=== PATIENT | female | born 1985 | race Caucasian/White ===

== ENCOUNTER 2022-07-22 11:07 | Observation (INO) ==
[2022-07-22] MEDS ORDERED: SODIUM CHLORIDE 0.9% 500 ML IV STA (11:30)
--- NOTE | 2022-07-22 11:40 | Emergency Department Note ---
Impression & Plan Acute appendicitis ADMIT ED Provider Note HPI: The patient is a 37-year-old female who presents to the emergency department with a chief complaint of right lower quadrant abdominal pain and nausea. Patient states her symptoms been ongoing for the past 3 days. Patient states the pain is been relatively constant. She denies any vomiting, denies any diarrhea. Patient states she does have a history of an ovarian torsion on the right side, this required surgical resection of an ovarian cyst in 2016 when she was living in [place]. Patient states the pain does not feel similar to that. On arrival here to the ED the patient is otherwise hemodynamically stable, she is in no acute distress on my initial evaluation. ROS: - Per HPI *Outpatient medications and allergy history reviewed. *Pertinent external medical records reviewed. PE: General: Alert HEENT: Normocephalic, trachea midline Eyes: Extraocular eye movement is intact, no scleral erythema Pulmonary: Clear to auscultation bilaterally, no wheezing Cardio: Regular rate and rhythm GI: Abdomen is soft to palpation, moderate tenderness in the right lower quadrant to palpation without guarding or rigidity : No suprapubic tenderness MSK: No evidence of trauma or malformation of the extremities, no edema Skin: No evidence of rash Neuro: Alert, no focal deficits Psychiatric: Cooperative quality assurance monitor body: (As interpreted by myself): - An order was placed for continuous cardiac monitoring - Patient was noted to be in sinus rhythm with a rate of 70 Interventions provided in ED: -IV morphine, IV Zofran, IV Zosyn Differential Diagnosis: Ovarian cyst, ovarian torsion, acute appendicitis, small bowel obstruction, acute cholecystitis, amongst other potential pathologies. Medical Decision Making: Patient presented to the emergency department the chief complaint of right-sided abdominal pain, on arrival here to the ED the patient is in no acute distress. IV was established, lab work obtained, patient was placed on surveillance system monitor. Lab work shows a mild leukocytosis, no evidence of acute kidney injury, CT imaging of the abdomen pelvis was obtained that shows evidence of acute appendicitis without perforation or abscess. Case was discussed with the on- call midlevel provider for general surgery, following evaluation at the bedside by Dr. Hernández of general surgery patient will be taken to the OR for definitive care. She was given a prophylactic dose of Zosyn here in the ED as well as morphine and Zofran for pain and nausea. Patient is in agreement to the above plan as is her at the bedside, patient was transferred to the operating room in stable condition for further management Consultants: Dr. Hernández, General surgery Disposition discussion held by myself with: Patient Diagnosis: 1. Acute appendicitis 2. Right-sided abdominal pain, acute 3. Leukocytosis, mild Disposition: Admission Thomas Young DO Emergency Medicine Past Med/Surg History Medical History Thyroid antibody positive Surgical History History of History of lung surgery lung resection History of removal of ovarian cyst History of tonsillectomy and adenoidectomy Family History Father Diabetes Myocardial infarction Hypertension Dyslipidemia Mother Cancer thyroid Sister Hypertension Cancer thyroid Aunt Cancer thyroid Uncle Cancer thyroid Grandfather (Maternal) Cancer thyroid Denies family history of Ovarian cancer Prostate cancer Breast cancer Colorectal cancer Social History (Updated 11/11/20 @ 13:29 by TARIK Winn) Smoking Status: Never smoker Second Hand Exposure: No; Hx Alcohol Use: Yes Alcohol Intake Frequency Comment: 1-2 per month Hx Substance Use: No Preferred Language: Vietnamese marital status: Current Living Situation: Spouse and Family current occupational status: employed Feels Safe at Home: Yes caffeine: No Dental Care, Regularly: No Physical Activity Frequency: 3-4 Times per Week Seatbelt Use: always Sunscreen Use: Yes Allergies Allergies Allergy/AdvReac Type Severity Reaction Status Date / Time Sulfa (Sulfonamide Allergy hives Verified 07/22/22 14:39 Antibiotics) Home Meds Home Medications Medication Instructions Recorded Confirmed ascorbic acid (vitamin C) 1,000 mg 1,000 mg PO DAILY 09/29/20 07/22/22 tablet,extended release cholecalciferol (vitamin D3) 125 125 mcg PO DAILY 09/29/20 07/22/22 mcg (5,000 unit) capsule magnesium citrate 100 mg capsule 100 mg PO DAILY PRN Constipation 09/29/20 07/22/22 coenzyme Q10 30 mg capsule 0 mg PO DAILY 07/22/22 07/22/22 cyanocobalamin (vitamin B-12) 50 0 mcg PO DAILY 07/22/22 07/22/22 mcg tablet (Vitamin B-12) naltrexone 50 mg tablet 0 mg PO DAILY 07/22/22 07/22/22 Results & Data (ED) Vital Signs Vital Signs - 24 hr 07/22/22 11:17 07/22/22 11:35 07/22/22 14:00 Temperature 36.6 C Temperature Source Temporal Artery Scan Pulse Rate 94 H Pulse Rate [Radial] 72 78 Pulse Rhythm [Radial] Regular Pulse Strength [Radial] Normal Respiratory Rate 18 21 18 Respiratory Effort / Characteristics Non-Labored Spontaneous Non-Labored Spontaneous Non-Labored Spontaneous Respiratory Depth Normal Normal Normal Respiratory Pattern Regular Regular Regular Blood Pressure 148/94 H Blood Pressure [Left Arm] 139/97 156/91 H Blood Pressure Mean 112 Blood Pressure Mean [Left Arm] 111 112 Blood Pressure Position Sitting Blood Pressure Position [Left Arm] Lying Lying Pulse Oximetry 98 99 100 Oxygen Delivery Method Room Air Room Air Room Air Sepsis Recent Fever Within 48 Hours No Sepsis New/Unexplained Change in Mental Status N/A Sepsis Action Taken by Nursing No Action Required 07/22/22 15:02 07/22/22 15:27 07/22/22 15:45 Temperature Temperature Source Pulse Rate Pulse Rate [Radial] 70 74 Pulse Rhythm [Radial] Pulse Strength [Radial] Respiratory Rate 18 18 Respiratory Effort / Characteristics Non-Labored Accessory Muscle Use Respiratory Depth Normal Respiratory Pattern Blood Pressure Blood Pressure [Left Arm] 138/90 150/85 H Blood Pressure Mean Blood Pressure Mean [Left Arm] 106 106 Blood Pressure Position Blood Pressure Position [Left Arm] Pulse Oximetry 97 100 Oxygen Delivery Method Room Air Room Air Room Air Sepsis Recent Fever Within 48 Hours Sepsis New/Unexplained Change in Mental Status Sepsis Action Taken by Nursing Laboratory Data 07/22/22 11:35 07/22/22 11:35 Lab Results 07/22/22 07/22/22 07/22/22 Range/Units 11:35 11:35 11:35 WBC 12.10 H (4.8-10.8) K/ul RBC 4.62 (4.20-5.40) M/uL Hgb 13.7 (12.0-16.0) g/dl Hct 40.7 (37.0-47.0) % MCV 88.1 (80.0-100.0) fL MCH 29.7 (25.0-34.0) pg MCHC 33.7 (32.0-36.0) g/dL RDW Std Deviation 39.4 (36.4-46.3) fL RDW Coeff of Gopi 12.3 (11.5-14.5) % Plt Count 224 (130-400) K/uL MPV 9.8 (9.4-12.4) fL Immature Gran % (Auto) 0.3 % Neut % (Auto) 73.0 % Lymph % (Auto) 18.8 % Wilkes % (Auto) 6.9 % Eos % (Auto) 0.6 % Baso % (Auto) 0.4 % Neut # (Auto) 8.84 H (1.40-6.50) K/uL Lymph # (Auto) 2.27 (1.2-3.4) K/uL [place] # (Auto) 0.83 H (0.11-0.59) K/uL Eos # (Auto) 0.07 (0-0.50) K/uL Baso # (Auto) 0.05 (0-0.2) K/uL Immature Gran # (Auto) 0.04 (0.01-0.20) K/uL Sodium 139 (136-145) mmol/L Potassium 3.7 (3.5-5.1) mmol/L Chloride 105 (98-107) mmol/L Carbon Dioxide 31 (21-32) mmol/L Anion Gap 3 (3-11) BUN 7 (6-23) mg/dl Creatinine 0.68 (0.6-1.2) mg/dl Est Cr Clr Drug Dosing 123.7 ml/min Est GFR ( Amer) 129.5 ml/min Est GFR (Non-Af Amer) 111.7 ml/min BUN/Creatinine Ratio 10.3 (10-20) Glucose 99 (70-99(Fasting)) mg/dl Calcium 8.9 (8.5-10.1) mg/dl Total Bilirubin 0.4 (0.2-1.0) mg/dl AST 11 L (13-39) U/L ALT 10 (7-52) U/L Alkaline Phosphatase 56 (34-104) U/L Total Protein 6.7 (6.0-8.3) gm/dl Albumin 4.1 (3.4-5.0) gm/dl Globulin 2.6 (2.5-4.0) gm/dl Albumin/Globulin Ratio 1.6 (0.9-2) Lipase 8 L (11-82) U/L HCG, Qual Negative (Negative) Urine Color Urine Appearance (Clear) Urine pH (4.5-7.5) Ur Specific [place] (1.000-1.030) Urine Protein (Negative) Urine Glucose (UA) (Negative) Urine Ketones (Negative) Urine Blood (Negative) Urine Nitrite (Negative) Urine Bilirubin (Negative) Urine Urobilinogen (Negative) Ur Leukocyte Esterase (Negative) SARS-CoV-2, RNA, NAAT (NEGATIVE) 07/22/22 07/22/22 Range/Units 13:33 14:11 WBC (4.8-10.8) K/ul RBC (4.20-5.40) M/uL Hgb (12.0-16.0) g/dl Hct (37.0-47.0) % MCV (80.0-100.0) fL MCH (25.0-34.0) pg MCHC (32.0-36.0) g/dL RDW Std Deviation (36.4-46.3) fL RDW Coeff of Gopi (11.5-14.5) % Plt Count (130-400) K/uL MPV (9.4-12.4) fL Immature Gran % (Auto) % Neut % (Auto) % Lymph % (Auto) % Wilkes % (Auto) % Eos % (Auto) % Baso % (Auto) % Neut # (Auto) (1.40-6.50) K/uL Lymph # (Auto) (1.2-3.4) K/uL [place]kes # (Auto) (0.11-0.59) K/uL Eos # (Auto) (0-0.50) K/uL Baso # (Auto) (0-0.2) K/uL Immature Gran # (Auto) (0.01-0.20) K/uL Sodium (136-145) mmol/L Potassium (3.5-5.1) mmol/L Chloride (98-107) mmol/L Carbon Dioxide (21-32) mmol/L Anion Gap (3-11) BUN (6-23) mg/dl Creatinine (0.6-1.2) mg/dl Est Cr Clr Drug Dosing ml/min Est GFR ( Amer) ml/min Est GFR (Non-Af Amer) ml/min BUN/Creatinine Ratio (10-20) Glucose (70-99(Fasting)) mg/dl Calcium (8.5-10.1) mg/dl Total Bilirubin (0.2-1.0) mg/dl AST (13-39) U/L ALT (7-52) U/L Alkaline Phosphatase (34-104) U/L Total Protein (6.0-8.3) gm/dl Albumin (3.4-5.0) gm/dl Globulin (2.5-4.0) gm/dl Albumin/Globulin Ratio (0.9-2) Lipase (11-82) U/L HCG, Qual (Negative) Urine Color Yellow Urine Appearance Clear (Clear) Urine pH 7.5 (4.5-7.5) Ur Specific [place] 1.043 H (1.000-1.030) Urine Protein Negative (Negative) Urine Glucose (UA) Negative (Negative) Urine Ketones Negative (Negative) Urine Blood Negative (Negative) Urine Nitrite Negative (Negative) Urine Bilirubin Negative (Negative) Urine Urobilinogen Negative (Negative) Ur Leukocyte Esterase Negative (Negative) SARS-CoV-2, RNA, NAAT NEGATIVE (NEGATIVE) Administered Medications Discontinued Medications Bupivacaine HCl (Bupivacaine 0.5 % 5 Mg/1 Ml Mpf 30ml Vial) Confirm Administered Dose 30 ml .ROUTE .STK-MED ONE Stop: 07/22/22 15:46 Last Admin: 07/22/22 17:00 Dose: 10 ml Documented By: ALONDRA Sodium Chloride (Nss) 500 mls @ 999 mls/hr IV .Q31M STA Stop: 07/22/22 12:00 Last Infusion: 07/22/22 12:15 Dose: 0 mls/hr Documented By: Admin: 07/22/22 11:44 Dose: 999 mls/hr Documented By: USHA Piperacillin Sod/Tazobactam Sod (Zosyn) 4.5 gm in 120 mls @ 240 mls/hr IV NOW ONE Stop: 07/22/22 14:14 Last Infusion: 07/22/22 15:06 Dose: 0 mls/hr Documented By: Admin: 07/22/22 13:59 Dose: 240 mls/hr Documented By: USHA Ioversol (Optiray 350 100ml) 86 ml IV ONCE ONE Stop: 07/22/22 12:54 Last Admin: 07/22/22 12:57 Dose: 86 ml Documented By: ROSA Morphine Sulfate (Morphine Sulfate 4 Mg/Ml 1 Ml Carp\Vial) 4 mg IV NOW STA Stop: 07/22/22 13:54 Last Admin: 07/22/22 13:59 Dose: 4 mg Documented By: USHA Morphine Sulfate (Morphine Sulfate 4 Mg/Ml 1 Ml Carp\Vial) 4 mg IV NOW STA Stop: 07/22/22 13:56 Last Admin: 07/22/22 14:04 Dose: Not Given Documented By: USHA Morphine Sulfate (Morphine Sulfate 4 Mg/Ml 1 Ml Carp\Vial) 4 mg IV NOW STA Stop: 07/22/22 15:02 Last Admin: 07/22/22 15:04 Dose: 4 mg Documented By: USHA Ondansetron HCl (Ondansetron Inj 2 Mg/Ml 2 Ml Vial) 4 mg IV NOW STA Stop: 07/22/22 13:53 Last Admin: 07/22/22 13:59 Dose: 4 mg Documented By: USHA Ondansetron HCl (Ondansetron Inj 2 Mg/Ml 2 Ml Vial) 4 mg IV NOW STA Stop: 07/22/22 13:56 Last Admin: 07/22/22 14:04 Dose: Not Given Documented By: USHA Imaging Data Radiologist's Impression: Abdomen/Pelvis CT 07/22/22 11:38 CT abd pelvis IV con only CLINICAL HISTORY: RLQ pain TECHNIQUE: Helical axial images of the abdomen and pelvis were obtained and displayed. Automated dose lowering techniques and/or adjustment according to patient size were utilized for this exam. This exam was performed with in travenous contrast. CT DOSE: 952.90 mGy.cm COMPARISON: None available at the time of this dictation. FINDINGS: Lower chest: No acute abnormality. Liver: Unremarkable. No focal lesions are seen. Gallbladder and biliary tree: No calcified gallstones. Normal caliber wall. No intra- or extrahepatic biliary ductal dilation. Pancreas: Unremarkable, no focal lesions. Spleen: Unremarkable. Adrenals: Unremarkable. Kidneys and ureters: Unremarkable. Bladder: Unremarkable. Reproductive organs: Unremarkable. Bowel: There is an appendicolith with enlargement and wall thickening of the appendix, which measures 14 mm in diameter with mild surrounding free fluid. No drainable fluid collection is seen. There is a small hiatal hernia. Lymph nodes Retroperitoneal: Unremarkable. Pelvic: Unremarkable. Mesenteric: Subcentimeter lymph nodes are noted. Peritoneum: Fat stranding in the right lower quadrant. No evidence of pneumoperitoneum or drainable collection. There is a trace amount of pelvic fluid. Vessels: Unremarkable. Abdominal wall: A fat-containing umbilical hernia is seen. Bones: Unremarkable. IMPRESSION: Acute appendicitis without evidence of perforation or abscess formation. ACT 112: Negative or not required by law. Electronically signed by: Vincenzo Lane M.D. 07/22/2022 1:27 PM Discharge Plan Visit Data Chief Complaint: Abdominal Pain Stated Complaint: ABDOMINAL PAIN, FEVER ED Provider: Thomas Young Discharge Problem: Acute appendicitis Discharge Instructions Interventions: ED Discharge Assessment Last Done: 07/22/22 15:45 Forms Stand Alone Forms: [facility] Prescriptions Prescriptions: No Action ascorbic acid (vitamin C) 1,000 mg tablet extended release 1,000 mg PO DAILY cholecalciferol (vitamin D3) 125 mcg (5,000 unit) capsule 125 mcg PO DAILY magnesium citrate 100 mg capsule 100 mg PO DAILY PRN (Reason: Constipation) naltrexone 50 mg Tablet 0 mg PO DAILY Vitamin B-12 50 mcg Tablet 0 mcg PO DAILY coenzyme Q10 [CoQ-10] 30 mg Capsule 0 mg PO DAILY Referrals Referrals: Ryan Petit DO [Physician] -
[2022-07-22 11:55] LABS: Basophils # (auto) 0.05 K/uL (0-0.2); Basophils % (auto) 0.4 %; Eosinophils # (auto) 0.07 K/uL (0-0.50); Eosinophils % (auto) 0.6 %; Hematocrit (blood only) 40.7 % (37.0-47.0); Hemoglobin 13.7 g/dl (12.0-16.0); Immature Granulocytes # (auto) 0.04 K/uL (0.01-0.20); Immature Granulocytes % (auto) 0.3 %; Lymphocytes # (auto) 2.27 K/uL (1.2-3.4); Lymphocytes % (auto) 18.8 %; Mean Corpuscular Hemoglobin 29.7 pg (25.0-34.0); Mean Corpuscular Hgb Conc 33.7 g/dL (32.0-36.0); Mean Corpuscular Volume 88.1 fL (80.0-100.0); Mean Platelet Volume 9.8 fL (9.4-12.4); Monocytes # (auto) 0.83 K/uL (0.11-0.59); Monocytes % (auto) 6.9 %; Neutrophils # (auto) 8.84 K/uL (1.40-6.50); Platelet Count 224 K/uL (130-400); RDW Coefficient of Variation 12.3 % (11.5-14.5); RDW Standard Deviation 39.4 fL (36.4-46.3); Red Blood Count 4.62 M/uL (4.20-5.40)
[2022-07-22 12:18] LABS: Albumin Globulin Ratio 1.6 (0.9-2); Albumin Level 4.1 gm/dl (3.4-5.0); BUN Creatinine Ratio 10.3 (10-20); Bilirubin,Total 0.4 mg/dl (0.2-1.0); Calcium 8.9 mg/dl (8.5-10.1); Creatinine Clr Calc Pharmacy 123.7 ml/min; Est GFR (African American) 129.5 ml/min; Est GFR (Non-African American) 111.7 ml/min; Globulin 2.6 gm/dl (2.5-4.0); Potassium 3.7 mmol/L (3.5-5.1); Total Protein 6.7 gm/dl (6.0-8.3)
[2022-07-22] MEDS ORDERED: OPTIRAY 350 100ml IV ONE (12:53)
[2022-07-22 13:00] LABS: Pregnancy Test, Serum Negative (Negative)
--- NOTE | 2022-07-22 13:29 | CT Scan Report ---
CT abd pelvis IV con only CLINICAL HISTORY: RLQ pain TECHNIQUE: Helical axial images of the abdomen and pelvis were obtained and displayed. Automated dose lowering techniques and/or adjustment according to patient size were utilized for this exam. This e xam was performed with intravenous contrast. CT DOSE: 952.90 mGy.cm COMPARISON: None available at the time of this dictation. FINDINGS: Lower chest: No acute abnormality. Liver: Unremarkable. No focal lesions are seen. Gallbladder and biliary tree: No calcified gallstones. Normal caliber wall. No intra- or extrahepatic biliary ductal dilation. Pancreas: Unremarkable, no focal lesions. Spleen: Unremarkable. Adrenals: Unremarkable. Kidneys and ureters: Unremarkable. Bladder: Unremarkable. Reproductive organs: Unremarkable. Bowel: There is an appendicolith with enlargement and wall thickening of the appendix, which measures 14 mm in diameter with mild surrounding free fluid. No drainable fluid collection is seen. There is a small hiatal hernia. Lymph nodes Retroperitoneal: Unremarkable. Pelvic: Unremarkable. Mesenteric: Subcentimeter lymph nodes are noted. Peritoneum: Fat stranding in the right lower quadrant. No evidence of pneumoperitoneum or drainable c ollection. There is a trace amount of pelvic fluid. Vessels: Unremarkable. Abdominal wall: A fat-containing umbilical hernia is seen. Bones: Unremarkable. IMPRESSION: Acute appendicitis without evidence of perforation or abscess formation. ACT 112: Negative or not required by law. Electronically signed by: Vincenzo Lane M.D. 07/22/2022 1:27 PM
[2022-07-22] MEDS ORDERED: PIPERACILLIN/TAZOBACTAM 4.5 GM/120 ML BAG IV ONE (13:45)
[2022-07-22 13:51] LABS: Appearance Urine Clear (Clear); Bilirubin Urine Negative (Negative); Blood Urine Negative (Negative); Color Urine Yellow; Glucose Urine UA Negative (Negative); Ketones Urine Negative (Negative); Leukocyte Esterase Urine Negative (Negative); Nitrite Urine Negative (Negative); Protein Urine Negative (Negative); Specific Gravity Urine 1.043 (1.000-1.030); Urobilinogen Urine Negative (Negative); pH Urine 7.5 (4.5-7.5)
[2022-07-22] MEDS ORDERED: ONDANSETRON INJ 2 MG/ML 2 ML VIAL IV STA ×2 (13:52→13:55)
[2022-07-22] MEDS ORDERED: MoRPHine SULFATE 4 MG/ML 1 ML CARP\\VIAL IV STA ×3 (13:53→15:01)
--- NOTE | 2022-07-22 14:08 | Surgery Consultation ---
Date of Consultation July 22, 2022 Assessment & Plan (1) Acute appendicitis: 37-year-old female with acute appendicitis (no evidence on CT scan of perforation or abscess formation). Patient see and examined with Dr. Hernández. Recommend Laparoscopic Appendectomy in OR today. IV abx ordered. COVID test completed during exam by ED staff. Risks of surgery reviewed with patient by Dr. Hernández and consent signed by patient with Dr. Hernández. Supervising Physician Co-Signing Physician Notes Dr. Hernándezpatient seen in the emergency room-she has findings of acute appendicitis with independent left For laparoscopic appendectomy possible open History of Present Illness Reason for Consultation: Acute appendicitis History of Present Illness 37-year-old female presented to [facility] earlier today, with her , for evaluation of right sided abdominal pain. She reports that the pain began 2 days ago, but continued to get worse. Past surgical history in abdomen includes c- section and removal of ovarian cyst. She reports that she has not had anything to eat since last night. She reports some nausea. ED course includes CT scan of abdomen showing acute appendicitis with no evidence of perforation. WBC elevated at 12.10. Allergies Allergy/AdvReac Type Severity Reaction Status Date / Time Sulfa (Sulfonamide Allergy hives Verified 11/11/20 13:47 Antibiotics) Home Medications Medication Instructions Recorded Confirmed Type ascorbic acid (vitamin C) 1,000 mg 1,000 mg PO DAILY 09/29/20 11/11/20 History tablet,extended release cholecalciferol (vitamin D3) 125 125 mcg PO DAILY 09/29/20 11/11/20 History mcg (5,000 unit) capsule loratadine 10 mg tablet (Claritin) 10 mg PO DAILY PRN 09/29/20 11/11/20 History magnesium citrate 100 mg capsule 100 mg PO DAILY PRN 09/29/20 11/11/20 History ferrous sulfate 325 mg (65 mg 325 mg PO Q OTHER DAY #30 tabs 11/11/20 11/11/20 Rx iron) tablet nitrofurantoin 100 mg PO BID 11/11/20 11/11/20 History monohydrate/macrocrystals 100 mg capsule (Macrobid) Patient History Medical History (Updated 07/22/22 @ 14:06 by Sintia Das PA-C) Thyroid antibody positive Surgical History (Updated 09/29/20 @ 10:35 by Gill Tam) History of History of lung surgery lung resection History of removal of ovarian cyst History of tonsillectomy and adenoidectomy Family History (Updated 11/11/20 @ 13:27 by TARIK Winn) Father Diabetes Myocardial infarction Hypertension Dyslipidemia Mother Cancer thyroid Sister Hypertension Cancer thyroid Aunt Cancer thyroid Uncle Cancer thyroid Grandfather (Maternal) Cancer thyroid Denies family history of Ovarian cancer Prostate cancer Breast cancer Colorectal cancer Social History (Updated 11/11/20 @ 13:29 by TARIK Winn) Smoking Status: Never smoker Second Hand Exposure: No; Hx Alcohol Use: Yes Alcohol Intake Frequency Comment: 1-2 per month Hx Substance Use: No Preferred Language: British marital status: Current Living Situation: Spouse and Family current occupational status: employed Feels Safe at Home: Yes caffeine: No Dental Care, Regularly: No Physical Activity Frequency: 3-4 Times per Week Seatbelt Use: always Sunscreen Use: Yes Review of Systems Constitutional: no fever and no chills Gastrointestinal: + abdominal pain and + nausea; no vomiting Physical Exam Constitutional: WD/WN, vitals as above Respiratory: normal respiratory effort; no respiratory distress and no labored breathing Gastrointestinal (Abdomen): +tender to palpation in right lower quadrant. Psychiatric: A+Ox3, euthymic affect Results & Data ([facility]) Vital Signs (Past 12 Hours) Vital Signs Temp Pulse Pulse Resp BP BP Pulse Ox 07/22/22 11:35 72 21 139/97 99 07/22/22 11:17 36.6 C 94 H 18 148/94 H 98 O2 Del Method 07/22/22 11:35 Room Air 07/22/22 11:17 Room Air PG Care Time/CCT Total # of Minutes Spent Total Time Spent with Patient: Total time spent is greater than 50% in coordination of care (as documented) at patient's floor/unit and/or counseling patient: Coding Level of Care Code 13722 IN/OBS CONSULT LVL 2,35M Diagnoses Acute appendicitis K35.80
[2022-07-22] MEDS ORDERED: HYDROmorphone INJ 1 MG/ML SYRINGE IV PRN ×2 (14:46→15:17)
[2022-07-22] MEDS ORDERED: ONDANSETRON INJ 2 MG/ML 2 ML VIAL IV PRN ×3 (14:46→18:29)
[2022-07-22] MEDS ORDERED: LABETALOL HCL IV 5 MG/ML 20ML IV PRN ×2 (14:46→15:17)
[2022-07-22] MEDS ORDERED: ePHEDrine sulfate 50 MG/ML AMP IV PRN ×2 (14:46→15:17)
[2022-07-22] MEDS ORDERED: ATROPINE SULFATE 0.1 MG/ML 10ML SYR IV PRN ×2 (14:46→15:17)
[2022-07-22] MEDS ORDERED: PROMETHAZINE HCL 12.5 MG in SODIUM CHLORIDE 0.9% 50 ML IV PRN ×2 (14:46→15:17)
[2022-07-22] MEDS ORDERED: NALOXONE HCL 0.4 MG/1 ML VIAL/CARP IV PRN ×2 (14:46→15:17)
[2022-07-22] MEDS ORDERED: fentaNYL citrate 100 MCG/2 ML VIAL IV PRN ×2 (14:46→15:17)
[2022-07-22] MEDS ORDERED: FLUMAZENIL 0.1 MG/1 ML 10 ML VIAL IV PRN ×2 (14:46→15:17)
--- NOTE | 2022-07-22 14:46 | Anesthesiology Consultation ---
Date of Service July 22, 2022 Assessment & Plan Chart Review Chart Review: Acceptable Risk for Surgery and Patient NOT seen in Pre Admission Testing Consults Requested none ASA [id number] Proposed Anesthesia Anesthesia Type: General History Surgery Operation Date: 07/22/22 15:00 Proposed Procedures p Laparoscopic Appendectomy - Gopi Hernández MD, FACS Height/Weight Height: 5 ft 4 in Weight: 90.9 kg Allergies Allergy/AdvReac Type Severity Reaction Status Date / Time Sulfa (Sulfonamide Allergy hives Verified 07/22/22 14:39 Antibiotics) Medications Home Medications Medication Instructions Recorded Confirmed Last Taken ascorbic acid (vitamin C) 1,000 mg 1,000 mg PO DAILY 09/29/20 07/22/22 Unknown tablet,extended release cholecalciferol (vitamin D3) 125 125 mcg PO DAILY 09/29/20 07/22/22 Unknown mcg (5,000 unit) capsule magnesium citrate 100 mg capsule 100 mg PO DAILY PRN Constipation 09/29/20 07/22/22 Unknown coenzyme Q10 30 mg capsule 0 mg PO DAILY 07/22/22 07/22/22 Unknown cyanocobalamin (vitamin B-12) 50 0 mcg PO DAILY 07/22/22 07/22/22 Unknown mcg tablet (Vitamin B-12) naltrexone 50 mg tablet 0 mg PO DAILY 07/22/22 07/22/22 Unknown Past Medical History Medical History Thyroid antibody positive GERD;Anxiety;Obesity; Exercise / Class Metabolic Activity II 4-5 Yardwork/Stairs/Walk up hill Past Family History Family History Father Diabetes Myocardial infarction Hypertension Dyslipidemia Mother Cancer thyroid Sister Hypertension Cancer thyroid Aunt Cancer thyroid Uncle Cancer thyroid Grandfather (Maternal) Cancer thyroid Denies family history of Ovarian cancer Prostate cancer Breast cancer Colorectal cancer Past Surgical History Surgical History History of History of lung surgery lung resection History of removal of ovarian cyst History of tonsillectomy and adenoidectomy Past Anesthesia History No Hx of Anesthesia Complications and No Family Hx of Anesthesia Complications History of PONV No Hx of PONV and No Hx of Motion Sickness Social History Smoking Status: Never smoker Hx Alcohol Use: Yes Hx Substance Use: No Physical Exam Vital Signs Last Vital Signs Temp 36.6 C 07/22/22 11:17 Pulse 78 07/22/22 14:00 Resp 18 07/22/22 14:00 BP 156/91 H 07/22/22 14:00 Pulse Ox 100 07/22/22 14:00 O2 Del Method Room Air 07/22/22 14:00 Testing Laboratory Results 07/22/22 11:35 07/22/22 11:35 Urine Color Yellow 07/22/22 13:33 Urine Appearance Clear (Clear) 07/22/22 13:33 Urine pH 7.5 (4.5-7.5) 07/22/22 13:33 Ur Specific [place] 1.043 (1.000-1.030) H 07/22/22 13:33 Urine Protein Negative (Negative) 07/22/22 13:33 Urine Glucose (UA) Negative (Negative) 07/22/22 13:33 Urine Ketones Negative (Negative) 07/22/22 13:33 Urine Nitrite Negative (Negative) 07/22/22 13:33 Ur Leukocyte Esterase Negative (Negative) 07/22/22 13:33
[2022-07-22] MEDS ORDERED: PROPOFOL IV EMULSION 10 MG/ML 100 ML VIAL IV ONE (15:44)
[2022-07-22] MEDS ORDERED: SUCCINYLCHOLINE 100MG/5ML SYR IV ONE (15:45)
[2022-07-22] MEDS ORDERED: BUPIVACAINE 0.5 % 5 MG/1 ML MPF 30ML VIAL ONE (15:45)
[2022-07-22] MEDS ORDERED: MIDAZOLAM HCL 1 MG/ML 2ML VIAL ONE (15:45)
[2022-07-22] MEDS ORDERED: fentaNYL citrate 100 MCG/2 ML VIAL ONE ×4 (15:46→17:30)
[2022-07-22] MEDS ORDERED: CISATRACURIUM BESYLATE IV SOLN 2 MG/ML 10 ML VIAL IV ONE (15:48)
[2022-07-22] MEDS ORDERED: DEXAMETHASONE SOD INJ 4 MG/ML VIAL ONE (15:49)
[2022-07-22] MEDS ORDERED: ONDANSETRON INJ 2 MG/ML 2 ML VIAL ONE (15:50)
[2022-07-22] MEDS ORDERED: PHENYLEPHRINE HCL 10 MG/ML VIAL ONE (15:55)
[2022-07-22] MEDS ORDERED: diphenhydrAMINE 50 MG/ML VIAL ONE (16:40)
[2022-07-22] MEDS ORDERED: GLYCOPYRROLATE 0.2 MG/ML VIAL ONE (16:43)
[2022-07-22] MEDS ORDERED: NEOSTIGMINE METHYLSULFATE 1 MG/ML 10ML VIAL ONE (16:43)
[2022-07-22] MEDS ORDERED: ACETAMINOPHEN 1,000 MG/100 ML VIAL IV ONE (17:06)
[2022-07-22] MEDS ORDERED: oxyCODONE HCL IR 5 MG TAB (IMMEDIATE RELEASE) PO PRN (17:06)
--- NOTE | 2022-07-22 17:06 | Post Operative Brief Note ---
PG Immediate Post Op with CF Date of Surgery July 22, 2022 Pre & Post Diagnosis Operation Date: 07/22/22 15:00 Pre-Op Diagnosis: Acute appendicitis Post-Op Diagnosis: Acute appendicitis I identified the patient and participated in the time-out.: Yes Procedure Operation Date: 07/22/22 15:00 Actual Procedures p Laparoscopic Appendectomy(Not Applicable) - Gopi Hernández MD, FACS Surgeon Gopi Hernández MD, FACS Senior Manager [employer] Nurses Estimated Blood Loss 10 Findings Consistent with Post-Op Diagnosis Acute appendicitis Specimens Specimen Description: A. appendix
--- NOTE | 2022-07-22 17:45 | Operative Report (OR) ---
DATE OF OPERATION: 07/22/2022. NAME OF OPERATION: Laparoscopic appendectomy. PREOPERATIVE DIAGNOSIS: Acute appendicitis. POSTOPERATIVE DIAGNOSIS: Acute appendicitis. STAFF SURGEON: Gopi Hernández MD. SENIOR POLICY ASSOCIATE: Nurses. ANESTHESIA: General. DESCRIPTION OF PROCEDURE: The patient was brought in the operating room and placed on the operating table in supine position. Her abdomen was prepped and draped in the usual fashion. Pneumatic stocki ngs and orogastric tube were placed. 0.5% plain Marcaine was used to anesthetize all incisions. Inc ision was made above the umbilicus, carrying dissection down identifying the fascia, placing a Veress needle, producing pneumoperitoneum, placing an 11 mm port. Under visualization, 5 mm port placed boyd prapubically and then a 12 mm port in the left lower quadrant. On inspection, the appendix was thick ened and inflamed. There was no abscess. The base of the appendix was transected using Endo-GRAEME sta pler. Then, the mesoappendix transected using an Endo-GRAEME stapler. Appendix was placed in an Endoba g and then removed. The site was irrigated. Hemostasis was maintained. All ports were removed. Fa scia at the umbilicus closed using 0 Vicryl suture, the left lower quadrant using 0 PDS suture. The skin was reapproximated using subcuticular 4-0 Monocryl with Dermabond at the umbilicus and 5 mm site left lower quadrant using Steri-Strips. The patient was transferred to the recovery room in stable condition. Job ID: [id number]
--- NOTE | 2022-07-22 18:27 | Anesthesiology Progress Note ---
Date of Service July 22, 2022 Anesthesia Post Procedure Vital Signs Vital Signs: Temp Pulse Pulse Pulse Resp BP BP 07/22/22 17:55 56 L 11 L 145/76 H 07/22/22 17:45 53 L 13 145/79 H 07/22/22 17:25 54 L 12 154/77 H 07/22/22 17:17 36.7 C 58 L 15 172/86 H 07/22/22 15:45 07/22/22 15:27 74 18 150/85 H 07/22/22 15:02 70 18 138/90 07/22/22 14:00 78 18 156/91 H 07/22/22 11:35 72 21 139/97 07/22/22 11:17 36.6 C 94 H 18 148/94 H Pulse Ox O2 Del Method O2 Flow Rate 07/22/22 17:55 95 Room Air 07/22/22 17:45 100 Oxymask 3 07/22/22 17:25 100 Oxymask 4 07/22/22 17:17 100 Oxymask 5 07/22/22 15:45 Room Air 07/22/22 15:27 100 Room Air 07/22/22 15:02 97 Room Air 07/22/22 14:00 100 Room Air 07/22/22 11:35 99 Room Air 07/22/22 11:17 98 Room Air Pain Intensity Right Lower Abdomen: Pain Intensity: 6 Transfer of Care Handoff Completed per policy Notes Mental Status: alert / awake / arousable Patient Amnestic to Procedure: Yes Nausea / Vomiting: adequately controlled Pain: adequately controlled Airway Patency, RR, SpO2: stable & adequate BP & HR: stable & adequate Hydration State: stable & adequate Anesthetic Complications: no major complications apparent
[2022-07-22] MEDS ORDERED: SODIUM CHLORIDE 0.9% 1000ML 1,000 ML IV SCH (18:29)
[2022-07-22] MEDS ORDERED: ACETAMINOPHEN 325 MG TAB PO PRN (18:29)
[2022-07-22] MEDS ORDERED: IBUPROFEN 600 MG TAB PO PRN (18:29)
[2022-07-22] MEDS ORDERED: HYDROmorphone INJ 0.5 MG/0.5 ML SYR IV PRN (18:29)
[2022-07-22] MEDS: PIPERACILLIN/TAZOBACTAM 3.375 GM in DEXTROSE 5% 100 ML IV SCH (19:56)
[2022-07-23] MEDS: PIPERACILLIN/TAZOBACTAM 3.375 GM in DEXTROSE 5% 100 ML IV SCH ×2 (03:19→10:10)
--- NOTE | 2022-07-24 00:46 | Discharge Summary (DS) ---
HISTORY OF PRESENT ILLNESS: The patient is a 37-year-old female who presented to the Emergency Room on 07/22/2022 with abdominal pain and found to have appendicitis. The patient was taken to the [facility] room on 07/22/2022 where she underwent laparoscopic appendectomy, which she tolerated very well. She has been kept in the hospital overnight and is feeling stable for discharge. We will send her home on some Augmentin because she did have some fluid in the abdomen. We will see her in the office . Job ID: [id number]
== END 2022-07-23 14:17 | disposition home or self-care (01) ==
LOC: ED 11:07 → 3E 15:45 → INTOOBSV 17:10